=== PATIENT | male | born 1955 ===

== ENCOUNTER 2021-06-11 12:50 | Outpatient (CLI) | payer OTHER, SELFPAY | END 2021-06-11 12:51 | disposition home or self-care (01) | LOC: ANHBWCAUD 12:52 | PROVIDERS: PCP Family Medicine | DX: H90.3 Sensorineural hearing loss, bilateral (principal) | CPT/HCPCS: 92557; 92567 ==

== ENCOUNTER 2021-06-25 12:40 | Outpatient (RCR) | payer OTHER, SELFPAY | END 2021-09-23 23:59 | disposition home or self-care (01) | LOC: ANHBWCAUD 12:40 | PROVIDERS: PCP Family Medicine; Visit Provider Family Medicine | DX: Z46.1 Encounter for fitting and adjustment of hearing aid (principal) | CPT/HCPCS: V5160; V5261 ==